=== PATIENT | female | born 1945 | race Caucasian/White ===

== ENCOUNTER 2016-12-24 08:51 | Emergency (ER) | payer MEDICARE, OTHER ==
[2016-12-24 09:32] VITALS: BP 194/81
[2016-12-24] MEDS ORDERED: Tetracaine HCl/PF 0.5% 4 ML Bottle EYELF ONE (09:32)
--- NOTE | 2016-12-24 10:07 | EDM.PDOC ---
ED HPI GENERAL MEDICAL PROBLEM - General Chief Complaint: Eye Problems Stated Complaint: HALF OF A CONTACT LENSE IN LT EYE Time Seen by Provider: 12/24/16 09:25 Source of Information: Reports: Patient History Limitations: Reports: No Limitations - History of Present Illness INITIAL COMMENTS - FREE TEXT/NARRATIVE: pt removed her contact and only half came out. She believes the rest is in the eye. Onset: Today Duration: Hour(s): Location: Reports: Other ( left eye. ) Associated Symptoms: Reports: No Other Symptoms - Related Data Allergies Allergy/AdvReac Type Severity Reaction Status Date / Time No Known Allergies Allergy Verified 12/24/16 09:32 Home Meds: Home Meds valACYclovir [Valtrex] 500 mg PO DAILY 12/24/16 [History] Past Medical History [employer] History: Reports: - Infectious Disease History Infectious Disease History: Reports: Herpes Social & Family History - Tobacco Use Smoking Status *Q: Never Smoker - Caffeine Use Caffeine Use: Reports: Coffee - Recreational Drug Use Recreational Drug Use: No ED ROS GENERAL - Review of Systems Review Of Systems: See Below Constitutional: Reports: No Symptoms HEENT: Reports: Contact Lenses, Other ( Pt thinks that half of the contact is still in the eye. ) Respiratory: Reports: No Symptoms Cardiovascular: Reports: No Symptoms Endocrine: Reports: No Symptoms GI/Abdominal: Reports: No Symptoms : Reports: No Symptoms ED EXAM GENERAL W FULL EYE - Physical Exam Exam: See Below Text/Narrative:: pt thinks half of her contact is in the eye. Exam Limited By: No Limitations General Appearance: Alert, Anxious, Other (pt has a mildly irritated left eye. ) Ears: Normal TMs Nose: Normal Inspection Throat/Mouth: Normal Inspection Course - Vital Signs Last Recorded V/S: Last Vital Signs Temp 36.0 C 12/24/16 09:23 Pulse 65 12/24/16 09:23 Resp 16 12/24/16 09:23 BP 194/81 H 12/24/16 09:23 Pulse Ox 99 12/24/16 09:23 - Orders/Labs/Meds Meds: Medications Discontinued Medications Generic Name Dose Route Start Last Admin Trade Name Freq PRN Reason Stop Dose Admin Tetracaine HCl 1 ml 12/24/16 09:32 12/24/16 09:36 Tetracaine 0.5% Steri-Unit Lorena EYELF 12/24/16 09:33 2 drop ASDIRECTED ONE Administration - Re-Assessments/Exams Free Text/Narrative Re-Assessment/Exam: 12/24/16 10:10 tetracaine was inserted in the left eye. At first the contact was not visable. Dye was then inserted in the eye and in the lateral corner the piece of contact was sitting. This was removed without difficulty. Departure - Departure Time of Disposition: 10:04 Disposition: Home, Self-Care 01 Condition: Fair Clinical Impression: FB eye - Discharge Information Instructions: Eye Foreign Body Referrals: PCP,None [Primary Care Provider] - Forms: ED Department Discharge Care Plan Goals: use liquid tears, rtc if problems.
== END 2016-12-24 10:11 | disposition home or self-care (01) ==
LOC: JP.ED 08:51 → EDBD 08:51 → JP.ED 10:11
DX: T15.92XA Foreign body on external eye, part unspecified, left eye, initial encounter (principal)
CPT/HCPCS: 99283; A9270; 99282